=== PATIENT | male | born 1945 | race Caucasian/White ===

== ENCOUNTER 2018-01-01 17:35 | Inpatient (IN) | payer OTHER ==
[~2018-01-01] VITALS: Ht 188 cm; Wt 88.0 kg
[~2018-01-01 17:35] MED LIST: ALTACE10 M1 PO; GLUCOPHAGE500 MG PO; LEVAQUIN 500 M500 MG PO; LOSARTAN PO; ZOCOR 20 MG TAB20 M1 PO
[2018-01-01 17:42] VITALS: BP 132/45
[2018-01-01] MEDS ORDERED: ASPIR 8181 MG PO (17:47)
[2018-01-01 18:11] LABS: HEMATOCRIT 41.9 % (42.0-52.0); HEMOGLOBIN 14.5 gm/dL (14.0-18.0); MCH 30.2 pg (26.0-34.0); MCHC 34.6 g/dL (28.0-37.0); MCV 87.2 fL (80.0-100.0); MPV 8.1 fl. (7.2-11.1); NUCLEATED RBCS 0 /100WBC; PLATELET COUNT* 197 thou/uL (150-400); RBC 4.81 mil/uL (4.50-6.00); WBC 10.1 thou/uL (4.0-11.0)
[2018-01-01 18:20] LABS: CALCIUM 9.1 mg/dL (8.5-10.1); CREATININE 1.3 mg/dL (0.6-1.3); POTASSIUM 4.5 mmol/L (3.5-5.1)
[2018-01-01 18:25] LABS: ALBUMIN 4.3 g/dL (3.4-5.0); TOTAL BILIRUBIN 0.6 mg/dL (<0.1-1.0); TOTAL PROTEIN 7.5 g/dL (6.4-8.2)
[2018-01-01 18:33] LABS: ABSOLUTE MONOCYTES 0.3 thou/uL (0.0-1.2); ABSOLUTE NEUTROPHILS 8.8 thou/uL (1.6-8.1)
[2018-01-01 18:34] LABS: PLATELET ESTIMATE ADEQUATE
[2018-01-01 19:44] VITALS: BP 134/73
[2018-01-01 20:15] VITALS: BP 130/74
[2018-01-01 23:56] VITALS: BP 118/60
[2018-01-02 04:18] VITALS: BP 117/70
[2018-01-02 04:45] LABS: HEMATOCRIT 36.8 % (42.0-52.0); HEMOGLOBIN 12.8 gm/dL (14.0-18.0); MCH 30.3 pg (26.0-34.0); MCHC 34.9 g/dL (28.0-37.0); MCV 86.8 fL (80.0-100.0); MPV 8.4 fl. (7.2-11.1); RBC 4.24 mil/uL (4.50-6.00); RDW-CV 12.7 % (10.5-14.5); WBC 8.7 thou/uL (4.0-11.0)
[2018-01-02 05:58] LABS: ALBUMIN 3.6 g/dL (3.4-5.0); CALCIUM 8.4 mg/dL (8.5-10.1); CREATININE 1.2 mg/dL (0.6-1.3); POTASSIUM 4.2 mmol/L (3.5-5.1); TOTAL BILIRUBIN 0.7 mg/dL (<0.1-1.0); TOTAL PROTEIN 6.5 g/dL (6.4-8.2)
[2018-01-02 08:00] VITALS: BP 124/73
[2018-01-02 12:00] VITALS: BP 128/77
[2018-01-02 16:00] VITALS: BP 130/78
[2018-01-02 23:30] VITALS: BP 146/71
[2018-01-03 08:00] VITALS: BP 133/65
--- NOTE | 2018-01-03 08:06 | CON ---
[facility] [address] [facility] [place] [address] CONSULTATION Name: BRUCE BRUNSON Room: [address] IN [facility].R.#: [id number] Admission: 01/01/18 Attend Phys: Tawana Aguila MD Discharge: Date of : 45 Report #: [id number] THIS REPORT FOR: //name// CC: Tawana Arizmendi DATE OF SERVICE: 01/02/2018 ATTENDING PHYSICIAN: Dr. Aguila. REASON FOR EVALUATION: Forehead lesion, complicated by inflammation, possible facial cellulitis. HISTORY OF PRESENT ILLNESS: Chart reviewed, patient examined. 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 He dates it back to perhaps 6-8 weeks, at one point did enlarge to some degree. He squeezed it and was able to exhibit purulent material. Since that time, it has been progressively growing, does have a blackened eschar there. There is question of a spider bite; however, over the course of the last 24 hours prior to admission, he developed some fairly significant nausea with emesis, became quite ill, had not had fevers. Denies any anorexia. No pulmonary or gastrointestinal related complaints. At this point, he describes it as intermittent throbbing type pain. He has been on antibiotics as an outpatient including Bactrim with no improvement. He is empirically placed on vancomycin and piperacillin/tazobactam. ALLERGIES: None known. CURRENT MEDICATIONS: Include aspirin, losartan, metformin, vancomycin, pantoprazole, Zosyn, enoxaparin, atorvastatin, ondansetron. PAST MEDICAL HISTORY: As described above, diabetes mellitus, hypertension, lung surgery 40 years ago. SOCIAL HISTORY: Nonsmoker, no ethanol. FAMILY HISTORY: Noncontributory. REVIEW OF SYSTEMS: As above. PHYSICAL EXAMINATION: GENERAL: Pleasant, alert, cooperative, appears to be in mild distress, mildly undernourished. VITAL SIGNS: Temperature 97.9, pulse 67, respirations 16, [place] [address] CONSULTATION Name: BRUCE BRUNSON Room: [address] IN [facility]#: [id number] Admission: 01/01/18 Attend Phys: Tawana Aguila MD Discharge: Date of : 45 Report #: [id number] 124/73. SKIN: Warm, dry. HEENT: Remarkable for, he has mostly circular lesion, about 2 cm in diameter, a blackened eschar. There is some marginal erythrodermic type eruption. There is excessive amount of swelling with it, I do not know if there is any fluctuance. There are some heaped up margins. LUNGS: Generally clear. HEART: Regular. ABDOMEN: Soft, nontender, nondistended. EXTREMITIES: No cyanosis. GENITOURINARY AND RECTAL: Deferred. LABORATORY DATA: Blood cultures are sterile thus far. Electrolytes: Sodium 141, potassium 4.2, chloride 105, bicarbonate is 27, anion gap of 9, BUN and creatinine 13 and 1.2, glucose 102. LFTs unremarkable. Albumin 3.6. Total protein 6.5. Estimated GFR 60. CBC: White count of 8.7, hemoglobin 12.8, hematocrit 36.8, platelets of 171. Lactic acid 1.5. ASSESSMENT: Forehead lesion that has been ongoing and somewhat chronic, but worsened recently, certainly would be concerned about infectious etiology, may have to broaden our differential, however, does not have a typical look of the facial cellulitis and there is some question of exposure. [place]. He does travel to [place], [place] places that in spite of the winter may have had potential exposures. We will discuss with Dr. Aguila. It may be reasonable to try to do a biopsy to exclude both infectious and noninfectious etiologies. Continue empiric therapy. I think we will add doxycycline as well. <ELECTRONICALLY SIGNED> By: Srinivas Zavala MD 01/03/18 [id number] Zavala MD /nt
[2018-01-03 16:00] VITALS: BP 131/71
[2018-01-03 21:47] VITALS: BP 95/50
[2018-01-04 04:35] LABS: HEMATOCRIT 38.8 % (42.0-52.0); HEMOGLOBIN 13.4 gm/dL (14.0-18.0); MCH 30.3 pg (26.0-34.0); MCHC 34.5 g/dL (28.0-37.0); MCV 87.8 fL (80.0-100.0); MPV 8.6 fl. (7.2-11.1); RBC 4.42 mil/uL (4.50-6.00); RDW-CV 12.8 % (10.5-14.5); WBC 5.2 thou/uL (4.0-11.0)
[2018-01-04 05:06] LABS: CALCIUM 8.7 mg/dL (8.5-10.1); CREATININE 1.1 mg/dL (0.6-1.3); MAGNESIUM 1.7 mg/dL (1.8-2.4); POTASSIUM 4.4 mmol/L (3.5-5.1)
[2018-01-04 08:45] VITALS: BP 147/77
[2018-01-04] MEDS ORDERED: AUGMENTIN 875-1 EACH PO (09:10)
[2018-01-04 10:39] VITALS: BP 147/77
[2018-01-04] MEDS ORDERED: MINOCIN100 MG PO (11:50)
== END 2018-01-04 12:40 | disposition home or self-care (01) | DRG 603 ==
LOC: M.ERS 17:35 → M.2W 19:16 → M.TBA-ER 19:16 → M.2W 19:39 → M.3W 01-02 19:29
PROVIDERS: Nurse Practitioner Family; ADMIT Internal Medicine
DX: L03.211 Cellulitis of face (principal); E11.9 Type 2 diabetes mellitus without complications; I10 Essential (primary) hypertension; Z79.84 Long term (current) use of oral hypoglycemic drugs; Z79.82 Long term (current) use of aspirin; Z79.899 Other long term (current) drug therapy; Z85.820 Personal history of malignant melanoma of skin; Z87.891 Personal history of nicotine dependence

== ENCOUNTER 2019-03-20 18:15 | Emergency (ER) | payer OTHER ==
[~2019-03-20] VITALS: Ht 190.5 cm; Wt 88.5 kg
[~2019-03-20 18:15] MED LIST changes: +ASPIR 8181 MG PO; +AUGMENTIN 875-1 EACH PO; +MINOCIN100 MG PO
[2019-03-20 18:50] LABS: HEMATOCRIT 44.8 % (42.0-52.0); HEMOGLOBIN 15.5 gm/dL (14.0-18.0); MCH 30.1 pg (26.0-34.0); MCHC 34.6 g/dL (28.0-37.0); NUCLEATED RBCS 0 /100WBC; PLATELET COUNT* 189 thou/uL (150-400); RBC 5.14 mil/uL (4.50-6.00); RDW-CV 12.9 % (10.5-14.5); WBC 12.3 thou/uL (4.0-11.0)
[2019-03-20 19:00] LABS: CALCIUM 9.5 mg/dL (8.5-10.1); CREATININE 1.3 mg/dL (0.6-1.3)
[2019-03-20 19:05] LABS: ALBUMIN 4.6 g/dL (3.4-5.0); TOTAL BILIRUBIN 0.5 mg/dL (<0.1-1.0)
[2019-03-20 19:11] LABS: ABSOLUTE LYMPHOCYTES 0.2 thou/uL (0.8-5.3); ABSOLUTE MONOCYTES 0.1 thou/uL (0.0-1.2); ABSOLUTE NEUTROPHILS 11.9 thou/uL (1.6-8.1); PLATELET ESTIMATE ADEQUATE
[2019-03-20] MEDS ORDERED: ZOFRAN ODT4 MG PO (20:05)
[2019-03-20 20:32] VITALS: BP 139/91
== END 2019-03-20 20:33 | disposition home or self-care (01) ==
LOC: M.ERS 18:15
PROVIDERS: Physician Assistant
DX: E11.65 Type 2 diabetes mellitus with hyperglycemia (principal); T63.441A Toxic effect of venom of bees, accidental (unintentional), initial encounter; R11.2 Nausea with vomiting, unspecified; E11.9 Type 2 diabetes mellitus without complications; R19.7 Diarrhea, unspecified; I10 Essential (primary) hypertension; Z79.82 Long term (current) use of aspirin; Z79.899 Other long term (current) drug therapy; Z79.84 Long term (current) use of oral hypoglycemic drugs; Y92.89 Other specified places as the place of occurrence of the external cause

== ENCOUNTER → 2019-11-30 | Outpatient (CLI) | payer MEDICARE ==
[~2019-11-30] MED LIST changes: +ZOFRAN ODT4 MG PO
== END ==
LOC: M.ULTRA 08:51
DX: K76.0 Fatty (change of) liver, not elsewhere classified (principal)

== ENCOUNTER → 2020-01-04 | Outpatient (CLI) | payer MEDICARE | LOC: M.NUC 12:09 | DX: R10.11 Right upper quadrant pain (principal) ==